=== PATIENT | male | born 2000 | race Caucasian/White ===

== ENCOUNTER 2020-09-04 23:23 | Emergency (ER) | payer MEDICAID ==
[~2020-09-04] VITALS: Ht 188 cm; Wt 87.0 kg
[~2020-09-04 23:23] MED LIST: INSHUMSS SUBCUT; INSU100I28 SQ
[2020-09-04] MEDS ORDERED: KETOROLAC 30MG/ML VIAL IV STA (23:48)
[2020-09-05] MEDS ORDERED: SODIUM CHLORIDE 0.9% 1,000 ML IV ONE
[2020-09-05] MEDS ORDERED: ONDANSETRON HCL 4MG/2ML INJ IV ONE
[2020-09-05 00:03] LABS: BASOPHILS % 0.6 % (0.0-2.0); EOSINOPHILS % 1.3 % (0.0-5.0); HEMATOCRIT. 38.3 % (42.0-52.0); HEMOGLOBIN. 13.6 g/dL (14.0-18.0); LYMPHOCYTES % 16.2 % (20.0-50.0); MEAN CORPUSCULAR HEMOGLOBIN 30.1 pg (28.0-32.0); MEAN CORPUSCULAR VOLUME 84.5 fL (80.0-94.0); MEAN PLATELET VOLUME 9.8 fl (7.4-10.4); MONOCYTES % 8.8 % (2.0-8.0); NEUTROPHILS % 73.1 % (40.0-76.0); PLATELET 180 x1000/uL (130-400); RED BLOOD CELL COUNT 4.53 mill/uL (4.7-6.1)
[2020-09-05 00:06] LABS: CLARITY URINE CLEAR (CLEAR); COLOR URINE DARK YELLOW (YELLOW); KETONES URINE 1+ (NEGATIVE); LEUKOCYTE ESTERASE URINE NEGATIVE (NEGATIVE); NITRITE URINE NEGATIVE (NEGATIVE); OCCULT BLOOD URINE NEGATIVE (NEGATIVE); PH URINE 6.5 (4.5-8.0); PROTEIN URINE 2+ (NEGATIVE); SPECIFIC GRAVITY URINE 1.056 (1.005-1.030)
[2020-09-05 00:12] LABS: CHLORIDE 104 mEq/L (98-107)
[2020-09-05 00:17] LABS: ETHANOL BLOOD < 10 mg/dL
[2020-09-05 00:23] LABS: BETA HYDROXYBUTYRATE 0.7 mMol/L (0.0-0.3)
[2020-09-05 00:26] LABS: *AMPHETAMINES SCREEN URINE NEGATIVE (NEGATIVE); *BARBITURATES SCREEN URINE NEGATIVE (NEGATIVE); *BENZODIAZEPINES SCREEN URINE NEGATIVE (NEGATIVE); *COCAINE SCREEN URINE NEGATIVE (NEGATIVE)
[2020-09-05 00:27] LABS: CANNABINOID URINE SCREEN NEGATIVE (NEGATIVE); METHADONE URINE SCREEN NEGATIVE (NEGATIVE); OPIATES URINE SCREEN PRESUMTIVE POSITIVE (NEGATIVE); PHENCYCLIDINE URINE SCREEN NEGATIVE (NEGATIVE)
[2020-09-05] MEDS ORDERED: SODIUM CHLORIDE 0.9% 1,000 ML IV NR (01:00)
[2020-09-05] MEDS ORDERED: POTASSIUM CHLORIDE 20MEQ TABLET SR PO NR (01:30)
[2020-09-05] MEDS ORDERED: POTASSIUM CHLORIDE INJ 40 MEQ in DEXT 5% WATER 500 ML IV NR (02:00)
[2020-09-05 05:30] VITALS: BP 92/60
== END 2020-09-05 05:36 | disposition home or self-care (01) ==
LOC: ER 23:23
DX: E87.6 Hypokalemia (principal); E11.65 Type 2 diabetes mellitus with hyperglycemia; E86.0 Dehydration; Z91.14 Patient's other noncompliance with medication regimen; Z79.4 Long term (current) use of insulin
CPT/HCPCS: 36415; 80053; 80305; 80320; 81003; 82010; 82962; 83605; 83690; 83735; 85025; 93005; 96361; 96365; 96366; 96375; 99285; J1885; J2405; J3480; J7060; G0480

== ENCOUNTER 2022-03-22 23:38 | Inpatient (IN) | payer MEDICAID ==
[~2022-03-22] VITALS: Ht 185.4 cm; Wt 63.0 kg
[2022-03-23] VITALS (14 sets, daily range): BP systolic 110–136; BP diastolic 56–89
[2022-03-23] MEDS ORDERED: SODIUM CHLORIDE 0.9% 1,000 ML IV ONE (00:15)
[2022-03-23 00:26] LABS: BASOPHILS % 0.2 % (0.0-2.0); HEMATOCRIT. 49.1 % (42.0-52.0); HEMOGLOBIN. 16.5 g/dL (14.0-18.0); LYMPHOCYTES % 10.3 % (20.0-50.0); MEAN CORPUSCULAR HEMOGLOBIN 29.8 pg (28.0-32.0); MEAN CORPUSCULAR VOLUME 88.9 fL (80.0-94.0); MEAN PLATELET VOLUME 9.5 fl (7.4-10.4); MONOCYTES % 7.7 % (2.0-8.0); NEUTROPHILS % 81.8 % (40.0-76.0); PLATELET 337 x1000/uL (130-400); RED BLOOD CELL COUNT 5.52 mill/uL (4.7-6.1); RED CELL DISTRIBUTION WIDTH 12.8 % (11.6-14.6)
[2022-03-23 00:33] LABS: CHLORIDE 97 mEq/L (98-107)
[2022-03-23 00:42] LABS: BETA HYDROXYBUTYRATE 5.7 mMol/L (0.0-0.3); ETHANOL BLOOD < 10 mg/dL
[2022-03-23] MEDS ORDERED: INSULIN REGULAR (DRIP) 100 UNITS in SODIUM CHLORIDE 0.9% 99 ML IV ONE (01:15)
[2022-03-23] MEDS ORDERED: INSULIN REGULAR 100U/100ML PMX 100 ML IV NR (01:30)
[2022-03-23 01:33] LABS: CLARITY URINE CLEAR (CLEAR); COLOR URINE YELLOW (YELLOW); KETONES URINE 4+ (NEGATIVE); LEUKOCYTE ESTERASE URINE NEGATIVE (NEGATIVE); NITRITE URINE NEGATIVE (NEGATIVE); OCCULT BLOOD URINE NEGATIVE (NEGATIVE); PROTEIN URINE 2+ (NEGATIVE); SPECIFIC GRAVITY URINE 1.039 (1.005-1.030); UROBILINOGEN URINE 0.2 E.U./dL (0.2-1.0)
[2022-03-23] MEDS ORDERED: DEXT 5%/0.9% NACL KCL 20MEQ/L 1,000 ML IV ONE (01:45)
[2022-03-23 01:57] LABS: BG BASE EXCESS -12.3 mmol/L (-2.0-2.0); BG CARBOXYHEMOGLOBIN 0.6 % (0.5-1.5); BG DEOXYHEMOGLOBIN 1.9 % (0.0-5.0); BG FRACTION INSPIRED OXYGEN 21; BG HCO3 ACT 11.6 mmol/L (22.0-26.0); BG METHEMOGLOBIN 0.4 % (0.0-1.5); BG OXYGEN SATURATION 98.1 % (92.0-98.5); BG OXYHEMOGLOBIN 97.1 % (94.0-97.0); BG PCO2 23.2 mmHg (35.0-45.0); BG PH 7.316 (7.350-7.450); BG PO2 104.8 mmHg (75.0-100.0); BG SAMPLE SITE RIGHT RADIAL; BG TOTAL HEMOGLOBIN 15.9 g/dL (12.0-18.0); BG VENT MODE ROOM AIR
[2022-03-23 02:09] LABS: *AMPHETAMINES SCREEN URINE NEGATIVE (NEGATIVE); *BARBITURATES SCREEN URINE NEGATIVE (NEGATIVE); *BENZODIAZEPINES SCREEN URINE NEGATIVE (NEGATIVE); *COCAINE SCREEN URINE NEGATIVE (NEGATIVE); CANNABINOID URINE SCREEN NEGATIVE (NEGATIVE); METHADONE URINE SCREEN NEGATIVE (NEGATIVE); OPIATES URINE SCREEN NEGATIVE (NEGATIVE); PHENCYCLIDINE URINE SCREEN NEGATIVE (NEGATIVE)
[2022-03-23 02:19] LABS: PHOSPHORUS 1.6 mg/dL (2.5-4.9)
[2022-03-23 02:23] LABS: CHLORIDE 102 mEq/L (98-107)
[2022-03-23 04:16] LABS: CHLORIDE 103 mEq/L (98-107)
[2022-03-23 04:22] LABS: PHOSPHORUS 1.8 mg/dL (2.5-4.9)
[2022-03-23 06:17] LABS: CHLORIDE 102 mEq/L (98-107)
[2022-03-23 06:26] LABS: PHOSPHORUS 2.1 mg/dL (2.5-4.9)
[2022-03-23] MEDS ORDERED: SODIUM CHLORIDE 0.45% 1,000 ML IV SCH (09:00)
[2022-03-23] MEDS ORDERED: ONDANSETRON HCL 4MG/2ML INJ IV PRN (09:00)
[2022-03-23] MEDS ORDERED: DEXTROSE 50% WATER 50ML SYRINGE IV PRN ×2 (09:00)
[2022-03-23] MEDS ORDERED: ACETAMINOPHEN 325MG TABLET PO PRN (09:00)
[2022-03-23] MEDS: INSULIN GLARGINE 100 UNITS/ML SUBCUT SCH (09:28)
[2022-03-23] MEDS: ENOXAPARIN 40MG/0.4ML SYR SUBCUT SCH (09:28)
[2022-03-23] MEDS: SODIUM CHLORIDE 0.45% 1,000 ML IV SCH ×3 (09:30→21:08)
[2022-03-23] MEDS ORDERED: INFLUENZA VACCINE 05/PF 0.5 ML SYRINGE IM ONE (11:00)
[2022-03-23] MEDS: BLOOD SUGAR DIAGNOSTIC STRIP TEST SCH ×3 (11:50→21:00)
[2022-03-23] MEDS ORDERED: BLOOD SUGAR DIAGNOSTIC STRIP TEST SCH (12:50)
[2022-03-23 13:20] LABS: CHLORIDE 102 mEq/L (98-107)
[2022-03-23] MEDS ORDERED: INSULIN LISPRO 100 UNITS/ML SUBCUT SCH (13:20)
[2022-03-23] MEDS: INSULIN LISPRO 100 UNITS/ML SUBCUT SCH ×3 (13:27→21:10)
[2022-03-23 13:35] LABS: PHOSPHORUS 1.8 mg/dL (2.5-4.9)
[2022-03-23] MEDS ORDERED: MAGNESIUM 2 G PREMIX 50 ML IV NR (16:00)
[2022-03-23 16:46] LABS: CHLORIDE 99 mEq/L (98-107)
[2022-03-23] MEDS ORDERED: SODIUM PHOS,M-BASIC-D-BASIC 20 MM in SODIUM CHLORIDE 0.9% 250 ML IV NR (17:00)
[2022-03-23] MEDS ORDERED: KCL 20MEQ/100ML PREMIX 100 ML IV NR (18:41)
[2022-03-24] VITALS: BP 121/64
[2022-03-24 04:00] VITALS: BP 120/67
[2022-03-24] MEDS: SODIUM CHLORIDE 0.45% 1,000 ML IV SCH ×3 (05:55→17:40)
[2022-03-24] MEDS: BLOOD SUGAR DIAGNOSTIC STRIP TEST SCH ×4 (05:55→21:18)
[2022-03-24 07:03] LABS: BASOPHILS % 0.4 % (0.0-2.0); EOSINOPHILS % 1.2 % (0.0-5.0); HEMATOCRIT. 35.1 % (42.0-52.0); HEMOGLOBIN. 12.2 g/dL (14.0-18.0); LYMPHOCYTES % 33.1 % (20.0-50.0); MEAN CORPUSCULAR VOLUME 86.3 fL (80.0-94.0); MEAN PLATELET VOLUME 9.2 fl (7.4-10.4); MONOCYTES % 11.3 % (2.0-8.0); PLATELET 239 x1000/uL (130-400); RED BLOOD CELL COUNT 4.07 mill/uL (4.7-6.1); RED CELL DISTRIBUTION WIDTH 12.5 % (11.6-14.6)
[2022-03-24 07:12] LABS: CHLORIDE 102 mEq/L (98-107)
[2022-03-24 07:46] LABS: PHOSPHORUS 2.2 mg/dL (2.5-4.9)
[2022-03-24 08:00] VITALS: BP 127/77
[2022-03-24] MEDS: PANTOPRAZOLE SODIUM 40 MG/VIAL IV SCH (10:19)
[2022-03-24] MEDS: ENOXAPARIN 40MG/0.4ML SYR SUBCUT SCH (10:19)
[2022-03-24] MEDS: INSULIN LISPRO 100 UNITS/ML SUBCUT SCH ×4 (10:22→21:00)
[2022-03-24] MEDS ORDERED: SODIUM CHLORIDE 0.45% IV NR (10:30)
[2022-03-24] MEDS ORDERED: POTASSIUM PHOS M BASIC D BASIC IV NR (10:30)
[2022-03-24] MEDS ORDERED: MAGNESIUM 2 G PREMIX 50 ML IV NR (10:30)
[2022-03-24] MEDS: INSULIN GLARGINE 100 UNITS/ML SUBCUT SCH (11:31)
[2022-03-24 12:00] VITALS: BP 66/63
[2022-03-24] MEDS ORDERED: INSULIN GLARGINE 100 UNITS/ML SUBCUT NR (14:30)
[2022-03-24 16:00] VITALS: BP_SYST 105; BP_SYST 66; BP_DIAS 63; BP_DIAS 64
[2022-03-24 20:00] VITALS: BP 114/63
[2022-03-25] VITALS: BP 125/64
[2022-03-25] MEDS: SODIUM CHLORIDE 0.45% 1,000 ML IV SCH ×2 (01:00→08:56)
[2022-03-25] MEDS: BLOOD SUGAR DIAGNOSTIC STRIP TEST SCH ×2 (05:38→11:44)
[2022-03-25 05:42] VITALS: BP 110/61
[2022-03-25 06:33] LABS: HEMOGLOBIN 11.8 g/dL (14.0-18.0); MEAN CORPUSCULAR HEMOGLOBIN 30.3 pg (28.0-32.0); MEAN CORPUSCULAR VOLUME 85.1 fL (80.0-94.0); PLATELET 233 x1000/uL (130-400); RED BLOOD CELL COUNT 3.88 mill/uL (4.7-6.1); RED CELL DISTRIBUTION WIDTH 12.5 % (11.6-14.6)
[2022-03-25 08:00] VITALS: BP 118/66
[2022-03-25 08:06] LABS: CHLORIDE 102 mEq/L (98-107)
[2022-03-25] MEDS: INSULIN LISPRO 100 UNITS/ML SUBCUT SCH ×2 (08:54→12:14)
[2022-03-25] MEDS: PANTOPRAZOLE SODIUM 40 MG/VIAL IV SCH (08:55)
[2022-03-25] MEDS: ENOXAPARIN 40MG/0.4ML SYR SUBCUT SCH (08:55)
[2022-03-25] MEDS ORDERED: POTASSIUM CHLORIDE 20MEQ TABLET SR PO NR (09:00)
[2022-03-25] MEDS ORDERED: INSULIN GLARGINE 100 UNITS/ML SUBCUT SCH (09:00)
[2022-03-25] MEDS ORDERED: MAGNESIUM 2 G PREMIX 50 ML IV NR (09:30)
[2022-03-25] MEDS ORDERED: INSU100I28 SQ (09:32)
[2022-03-25] MEDS ORDERED: [UNRECOGNIZED DRUG - CODE] (09:32)
[2022-03-25] MEDS ORDERED: LANC-867 TP (09:32)
[2022-03-25] MEDS ORDERED: KCL 20MEQ/100ML PREMIX 100 ML IV NR (10:00)
[2022-03-25 12:00] VITALS: BP 128/76
[2022-03-25 15:08] VITALS: BP 128/76
[2022-03-26] MEDS ORDERED: FAMOTIDINE 20MG TABLET PO SCH (09:00)
== END 2022-03-25 15:56 | disposition home or self-care (01) | DRG 420 ==
LOC: ER 23:38 → CVICU 03-23 01:44 → UNDOADMIN 03-23 01:44 → EDBEDREQTM 03-23 01:48 → EDBEDREQ 03-23 01:48 → ENRESERV 03-23 07:03 → 3WST 03-23 11:30
PROVIDERS: ADMIT Internal Medicine; ATTEND Internal Medicine
DX: E10.10 Type 1 diabetes mellitus with ketoacidosis without coma (principal); E83.39 Other disorders of phosphorus metabolism; E83.52 Hypercalcemia; E83.42 Hypomagnesemia; E86.0 Dehydration; Z79.4 Long term (current) use of insulin; Z91.14 Patient's other noncompliance with medication regimen; E87.1 Hypo-osmolality and hyponatremia
CPT/HCPCS: 36415; 36600; 71045; 80048; 80053; 80305; 80320; 81003; 82010; 82375; 82805; 82962; 83036; 83735; 83970; 84100; 85025; 85027; 93005; 99285; C9113; J1650; J1815; J3475; J3480; J3490; J7030; J7050; G0480

== ENCOUNTER 2023-09-09 17:00 | Emergency (ER) | payer MEDICAID ==
[~2023-09-09] VITALS: Ht 185.4 cm; Wt 62.0 kg
[~2023-09-09 17:00] MED LIST changes: -INSHUMSS SUBCUT; +LANC-867 TP; +[UNRECOGNIZED DRUG - CODE]
[2023-09-09 17:11] VITALS: O2SAT 99
[2023-09-09 17:54] LABS: HEMATOCRIT. 38.6 % (42.0-52.0); HEMOGLOBIN. 13.4 g/dL (14.0-18.0); LYMPHOCYTES % 28.6 % (20.0-50.0); MEAN CORPUSCULAR HEMOGLOBIN 30.4 pg (28.0-32.0); MEAN CORPUSCULAR HGB CONC 34.7 g/dL (31.0-37.0); MEAN CORPUSCULAR VOLUME 87.7 fL (80.0-94.0); MEAN PLATELET VOLUME 8.9 fl (7.4-10.4); MONOCYTES % 5.9 % (2.0-8.0); NEUTROPHILS % 58.5 % (40.0-76.0); PLATELET 392 x1000/uL (130-400); RED CELL DISTRIBUTION WIDTH 12.4 % (11.6-14.6); WHITE BLOOD COUNT 6.8 x1000/uL (4.5-11.0)
[2023-09-09 17:59] LABS: CHLORIDE 92 mEq/L (98-107); POTASSIUM 3.9 mEq/L (3.5-5.1); SODIUM 128 mEq/L (136-145)
[2023-09-09 18:00] LABS: CALCIUM 9.4 mg/dL (8.7-10.4); CARBON DIOXIDE 27 mEq/L (21-32)
[2023-09-09 18:05] LABS: CREATININE 0.9 mg/dL (0.6-1.3); UREA NITROGEN BLOOD 9 mg/dL (9-23)
[2023-09-09 18:07] LABS: ALANINE AMINOTRANSFERASE 12 IU/L (10-49); ALBUMIN 4.4 g/dL (3.2-4.8); ASPARTATE AMINOTRANSFERASE 12 IU/L (<34); BILIRUBIN TOTAL 0.4 mg/dL (0.1-1.0)
[2023-09-09 18:08] LABS: PROTEIN TOTAL 8.3 g/dL (6.0-8.3); TROPONIN I HIGH SENSITIVITY < 4 ng/L (3.0-53)
[2023-09-09 18:09] LABS: GLUCOSE 516 mg/dL (70-105)
[2023-09-09] MEDS: SODIUM CHLORIDE 0.9% 1,000 ML IV ONE ×2 (18:13)
[2023-09-09 18:21] LABS: BETA HYDROXYBUTYRATE 1.6 mMol/L (0.0-0.3)
[2023-09-09 19:02] VITALS: TEMP 98.5
[2023-09-09 20:28] LABS: TROPONIN I HIGH SENSITIVITY < 4 ng/L (3.0-53)
[2023-09-09] MEDS ORDERED: INSU200I SQ (20:52)
[2023-09-09] MEDS ORDERED: INSU100I24 SQ (20:52)
[2023-09-09] MEDS: INSULIN REGULAR (HUMULIN R) 300UNITS/3ML VIAL IV STA (20:54)
[2023-09-09 21:13] VITALS: BP 125/88; PULSE 95; RESP 18
== END 2023-09-09 21:20 | disposition home or self-care (01) ==
LOC: ER 17:00 → EDBEDREQ 17:58 → ER 21:20
DX: E11.65 Type 2 diabetes mellitus with hyperglycemia (principal); R53.1 Weakness
CPT/HCPCS: 80053; 82010; 82962; 83880; 85025; 84484; 36415; 71045; 93005; 96361; 96374; 99285; J7030; Z7610 ×2